=== PATIENT | female | born 1950 | race Caucasian/White ===

== ENCOUNTER → 2021-05-12 | Outpatient (CLI) | payer OTHER ==
[~2021-05-12] MED LIST: CLON.5 PO; HYDACE5; HYOS.125 PO
== END | disposition home or self-care (01) ==
LOC: LAB SHORT 09:46 → LAB 09:46
DX: D36.10 Benign neoplasm of peripheral nerves and autonomic nervous system, unspecified (principal); L91.8 Other hypertrophic disorders of the skin
CPT/HCPCS: 88305

== ENCOUNTER 2022-01-12 08:08 | Emergency (ER) | payer OTHER ==
[~2022-01-12] VITALS: Ht 162.6 cm; Wt 61.2 kg
[2022-01-12 09:09] LABS: BASOPHILS ABSOLUTE AUTO 0.06 K/mm3 (0.00-0.23); BASOPHILS PERCENT AUTO 1 % (0-2); EOSINOPHILS ABSOLUTE AUTO 0.09 K/mm3 (0.00-0.68); EOSINOPHILS PERCENT AUTO 1 % (0-6); Hematocrit 37.5 % (33.0-51.0); Hemoglobin 12.2 g/dL (11.5-16.0); IMMATURE GRAN ABSOLUTE AUTO 0.02 K/mm3 (0.00-0.10); IMMATURE GRAN PERCENT AUTO 0 % (0-1); LYMPHOCYTES PERCENT AUTO 21 % (21-46); MONOCYTES ABSOLUTE AUTO 0.46 K/mm3 (0.16-1.47); MONOCYTES PERCENT AUTO 6 % (4-13); Mean Corpuscular HGB 29.3 pg (26.0-34.0); Mean Corpuscular HGB Conc 32.5 g/dL (31.5-36.5); Mean Corpuscular Volume 90 fL (80-100); Mean Platelet Volume 8.7 fL (9.1-12.4); NEUTROPHILS ABSOLUTE AUTO 5.27 K/mm3 (1.96-9.15); NEUTROPHILS PERCENT AUTO 70 % (41-73); Platelet Count 393 K/mm3 (150-400); RDW Coefficient Variation 12.7 % (11.7-14.2); RDW Standard Deviation 41.9 fL (35.1-46.3); Red Blood Cell Count 4.16 M/mm3 (3.80-5.20)
[2022-01-12 09:27] LABS: Anion Gap 7 mmol/L (6-16); Blood Urea Nitrogen 8 mg/dL (8-24); Bun/Creatinine Ratio 13.1 (12.0-20.0); CO2, Blood 25 mmol/L (21-32); Calcium, Blood 9.4 mg/dL (8.5-10.1); Chloride, Blood 108 mmol/L (98-108); Creatinine, Blood 0.61 mg/dL (0.40-1.00); Glomerular Filtration Rate >60 (60-); Glucose, Blood 120 mg/dL (70-99); Potassium, Blood 3.5 mmol/L (3.5-5.5); Sodium, Blood 140 mmol/L (136-145)
[2022-01-12] MEDS ORDERED: HYDROCODONE-AC1 EA10 PO (10:39)
[2022-01-12] MEDS ORDERED: ONDA4ODT MM (10:39)
[2022-01-12] MEDS ORDERED: HYDCOR2.5C PR (10:39)
[2022-01-12] MEDS ORDERED: DOC250 PO (10:39)
== END 2022-01-12 11:11 | disposition home or self-care (01) ==
LOC: ER 08:08
PROVIDERS: Emergency Medicine
DX: K64.4 Residual hemorrhoidal skin tags (principal); K59.00 Constipation, unspecified; G89.18 Other acute postprocedural pain; I10 Essential (primary) hypertension; Z79.899 Other long term (current) drug therapy
CPT/HCPCS: 36415; 74177; 80048; 85025; 96374; 96375; 99284-25; J1170; J2270; J2405; J3010; Q9967

== ENCOUNTER 2022-03-25 22:52 | Observation (INO) | payer OTHER ==
[~2022-03-25] VITALS: Ht 162.6 cm; Wt 63.0 kg
[~2022-03-25 22:52] MED LIST changes: +DOC250 PO; +HYDCOR2.5C PR; +HYDROCODONE-AC1 EA10 PO; +ONDA4ODT MM
[2022-03-25 23:24] LABS: BASOPHILS ABSOLUTE AUTO 0.05 K/mm3 (0.00-0.23); BASOPHILS PERCENT AUTO 1 % (0-2); EOSINOPHILS ABSOLUTE AUTO 0.15 K/mm3 (0.00-0.68); EOSINOPHILS PERCENT AUTO 2 % (0-6); Hematocrit 33.3 % (33.0-51.0); Hemoglobin 10.7 g/dL (11.5-16.0); IMMATURE GRAN ABSOLUTE AUTO 0.03 K/mm3 (0.00-0.10); IMMATURE GRAN PERCENT AUTO 0 % (0-1); LYMPHOCYTES ABSOLUTE AUTO 2.55 K/mm3 (0.84-5.20); LYMPHOCYTES PERCENT AUTO 34 % (21-46); MONOCYTES ABSOLUTE AUTO 0.55 K/mm3 (0.16-1.47); MONOCYTES PERCENT AUTO 7 % (4-13); Mean Corpuscular HGB Conc 32.1 g/dL (31.5-36.5); Mean Corpuscular Volume 90 fL (80-100); Mean Platelet Volume 9.2 fL (9.1-12.4); NEUTROPHILS ABSOLUTE AUTO 4.27 K/mm3 (1.96-9.15); NEUTROPHILS PERCENT AUTO 56 % (41-73); Platelet Count 250 K/mm3 (150-400); RDW Coefficient Variation 13.4 % (11.7-14.2); RDW Standard Deviation 44.4 fL (35.1-46.3); Red Blood Cell Count 3.69 M/mm3 (3.80-5.20)
[2022-03-25 23:42] LABS: Albumin, Blood 3.2 g/dL (3.4-5.0); Albumin/Globulin Ratio 1.1 (0.8-1.8); Bilirubin, Total 0.3 mg/dL (0.1-1.0); Bun/Creatinine Ratio 15.3 (12.0-20.0); Calcium, Blood 9.3 mg/dL (8.5-10.1); Creatinine, Blood 0.66 mg/dL (0.40-1.00); Potassium, Blood 3.2 mmol/L (3.5-5.5); Total Protein, Blood 6.2 g/dL (6.4-8.2)
[2022-03-25 23:46] LABS: International Normalized Ratio 1.05
[2022-03-26 00:13] LABS: Influenza A, PCR NEGATIVE (NEGATIVE); Influenza B, PCR NEGATIVE (NEGATIVE); Resp Syncytial Virus, PCR NEGATIVE (NEGATIVE); SARS-Cov-2 (COVID-19) PCR, MMC NEGATIVE (NEGATIVE)
[2022-03-26] MEDS ORDERED: ESTRADIOL 0.5 MG TAB VAG (02:46)
[2022-03-26] MEDS ORDERED: MULTIVITAMIN PO (02:49)
--- NOTE | 2022-03-26 03:00 | NUR ---
PT ADMITTED TO ROOM ICU 12 UNDER PCU STATUS - OBSERVATION. PT ARRIVES TO ROOM AT 0213, AND IS ABLE TO PIVOT TRANSFER TO BED FROM [facility] WITHOUT VERTIGO. PT ALERT AND ORIENTED. PLEASANT AND COOPERATIVE WITH CARE AND ASSESSMENT. ANXIOUS IN AFFECT. PT FOLLOWS COMANDS, AND IS A GOOD HISTORIAN. NO S/S BLEEDNG AT THIS TIME. SOMEWHAT HYPERTENSIVE. WILL MONITOR CLOSELY. WILL REVIEW CHART AND PLAN OF CARE FOR THIS PT.
[2022-03-26 03:54] LABS: Source, Urine Clean Catch
[2022-03-26 03:56] LABS: Bilirubin, Urine Neg (Neg); Blood, Urine Neg (Neg); Glucose Qualitative, Urine Neg (Neg); Ketones, Urine Neg (Neg); Leukocyte Esterase, Urine Neg (Neg); Nitrite, Urine Neg (Neg); Protein, Urine Neg (Neg); Specific Gravity, Urine 1.005 (1.003-1.022); Urobilinogen, Urine NORM (Normal)
[2022-03-26 04:01] LABS: Appearance, Urine Clear (Clear); Color, Urine Pale Yellow (P-Yellow)
--- NOTE | 2022-03-26 05:11 | NUR ---
PT HAS NOT HAD ANY EMESIS OR LOOSE BM'S THIS SHIFT. NO S/S BLEEDING. PT'S BLOOD PRESSURES HAVE IMPROVED ONCE HER ANXIOUSNESS SUBSIDED. PT WAS ABLE TO AMBULATE TO TOILET. VOIDS Q.S. SAMPLE SENT TO LAB FOR PROCESSING. ORTHOSTATIC BLOOD PRESSURES DONE, AND CHARTED. SEE VS FLOWSHEET FOR DETAILS. WILL CONTINUE TO MONITOR PT, AND WILL REPORT OFF TO ONCOMING RN.
[2022-03-26 05:30] LABS: BASOPHILS ABSOLUTE AUTO 0.04 K/mm3 (0.00-0.23); BASOPHILS PERCENT AUTO 1 % (0-2); EOSINOPHILS ABSOLUTE AUTO 0.07 K/mm3 (0.00-0.68); EOSINOPHILS PERCENT AUTO 1 % (0-6); Hematocrit 29.4 % (33.0-51.0); Hemoglobin 9.5 g/dL (11.5-16.0); IMMATURE GRAN ABSOLUTE AUTO 0.03 K/mm3 (0.00-0.10); IMMATURE GRAN PERCENT AUTO 0 % (0-1); LYMPHOCYTES ABSOLUTE AUTO 1.81 K/mm3 (0.84-5.20); LYMPHOCYTES PERCENT AUTO 25 % (21-46); MONOCYTES ABSOLUTE AUTO 0.42 K/mm3 (0.16-1.47); MONOCYTES PERCENT AUTO 6 % (4-13); Mean Corpuscular HGB 29.1 pg (26.0-34.0); Mean Corpuscular HGB Conc 32.3 g/dL (31.5-36.5); Mean Corpuscular Volume 90 fL (80-100); Mean Platelet Volume 9.1 fL (9.1-12.4); NEUTROPHILS ABSOLUTE AUTO 4.79 K/mm3 (1.96-9.15); NEUTROPHILS PERCENT AUTO 67 % (41-73); Platelet Count 241 K/mm3 (150-400); RDW Coefficient Variation 13.5 % (11.7-14.2); RDW Standard Deviation 44.9 fL (35.1-46.3); Red Blood Cell Count 3.27 M/mm3 (3.80-5.20); White Blood Cell Count 7.16 K/mm3 (4.00-11.30)
[2022-03-26 06:02] LABS: Bun/Creatinine Ratio 16.9 (12.0-20.0); Calcium, Blood 8.5 mg/dL (8.5-10.1); Creatinine, Blood 0.53 mg/dL (0.40-1.00); Potassium, Blood 3.9 mmol/L (3.5-5.5)
--- NOTE | 2022-03-26 07:19 | NUR ---
ASSUMPTION OF CARE RECEIVED REPORT FROM DANIELLE CASTORENA, ASSUMED CARE OF PATIENT. PATIENT LAYING ON RIGHT SIDE WITH EYES CLOSED, VITALS STABLE. SP02 97% ON RA. NO S/S OF DISTRESS. WILL REVIEW ORDERS AND TREAT PRESCRIBED.
[2022-03-26 11:19] LABS: Hemoglobin 10.1 g/dL (11.5-16.0)
--- NOTE | 2022-03-26 12:26 | NUR ---
REASSESSMENT NO ACUTE CHANGES FROM PREVIOUS ASSESSMENT. CLEAR LIQUID LUNCH TRAY PROVIDED, INDEPENDENT WITH MEALS. STAND BY ASSIST TO TOILET WITH STEADY GAIT. DENIES CURRENT NEEDS. REVIEWED H/H CURRENTLY STABLE.
[2022-03-26 16:05] LABS: Hematocrit 30.1 % (33.0-51.0); Hemoglobin 9.7 g/dL (11.5-16.0)
--- NOTE | 2022-03-26 16:07 | NUR ---
REASSESSMENT NO CHANGES FROM PREVIOUS ASSESSMENT. VITALS STABLE. H/H CURRENTLY PENDING. PATIENT DENIES NEEDS OR DISCOMFORTS. WILL CONTINUE TO MONITOR.
--- NOTE | 2022-03-26 17:57 | NUR ---
SHIFT SUMMARY PATIENT REMAINED A/O, DECLINED DISCOMFORTS. NO BLEEDING NOTED. VITALS STABLE THROUGH DAY. AWAITING DR. LAROSE'S VISIT. TOLERATED CLEAR LIQUID DIET WELL. WILL REPORT TO ONCOMING RN.
--- NOTE | 2022-03-26 20:00 | NUR ---
ASSUMED CARE OF PT AT 1915. REPORT RECEIVED. PT PRESENSTS IN BED. ALERT AND ORIENTED. PLEASANT AND COOPERATIVE WITH CARE AND ASSESSMENT. PT'S DAUGHTER IN ROOM. TEACHING DONE WITH PT AND HER DAUGHTER. ALLOWED FOR QUESTIONS. UPDATE GIVEN ON LABS AND PLAN FOR THIS EVENING. WILL REVIEW CHART AND PLAN OF CARE FOR THIS PT.
--- NOTE | 2022-03-27 01:19 | NUR ---
DR LAROSE COMES IN TO SEE PT. PT AGREES TO HAVING COLONOSCOPY. WILL BEGIN BOWEL PREP AT 0600 THIS MORNING. TEACHING DONE WITH PT ON WHAT TO EXPECT AND PROCEDURE. ANSWERED QUESTIONS FOR PT. NO S/S BLEEDING GI DISTRESS THIS NIGHT. WILL CONTINUE TO MONITOR.
--- NOTE | 2022-03-27 04:30 | NUR ---
PT HAS HAD NO BM'S THIS NIGHT. NO S/S BLEEDING. NO NAUSEA OR VOMITING. WILL START BOWEL PREP AT 0600 THIS MORNING. WILL PREMEDICATE PT WITH ZOFRAN TO PREVENT NAUSEA. THIS HAD BEEN DISCUSSED WITH DR LAROSE WHEN HE WAS IN TO SEE PT. PT HAS BEEN MOVING HERSELF ABOUT IN BED ON HER OWN.
[2022-03-27 04:38] LABS: Hematocrit 29.1 % (33.0-51.0); Hemoglobin 9.5 g/dL (11.5-16.0); Mean Corpuscular HGB 29.5 pg (26.0-34.0); Mean Corpuscular HGB Conc 32.6 g/dL (31.5-36.5); Mean Corpuscular Volume 90 fL (80-100); Platelet Count 249 K/mm3 (150-400); RDW Coefficient Variation 13.7 % (11.7-14.2); RDW Standard Deviation 45.3 fL (35.1-46.3); Red Blood Cell Count 3.22 M/mm3 (3.80-5.20); White Blood Cell Count 5.33 K/mm3 (4.00-11.30)
[2022-03-27 05:05] LABS: Calcium, Blood 8.6 mg/dL (8.5-10.1); Creatinine, Blood 0.56 mg/dL (0.40-1.00); Potassium, Blood 3.4 mmol/L (3.5-5.5)
--- NOTE | 2022-03-27 06:36 | NUR ---
PT HAS FINISHED FIRST HALF OF SUPREP BOWEL PREP. WAS GIVEN 4 MG ZOFRAN 15 MINUTES PRIOR TO PREP. PT UP IN ROOM. VOIDS Q.S. NO S/S BLEEDING. HAS DONE HER OWN ORAL CARE AND AM CARE THIS MORNING. WILL CONTINUE TO MONITOR PT, AND WILL REPORT OFF TO ONCOMING RN.
--- NOTE | 2022-03-27 07:28 | NUR ---
ASSUMPTION OF CARE RECEIVED REPORT FROM DANIELLE CASTORENA. ASSUMED CARE OF PATIENT. PATIENT A/O, DENIED DISCOMFORTS. INDEPENDENTLY TRANSFERRED TO TOILET. CURRENTLY DRINKING BOWEL PREP FOR PLANNED SCOPE TODAY. VITALS STABLE. RECEIVED ORDERS FOR IV POTASSIUM. WILL ADMINISTER PRESCRIBED.
--- NOTE | 2022-03-27 08:17 | NUR ---
PHYSICIAN COMMUNICATION NOTIFIED DR. LAROSE THAT PATIENT COMPLETED SUPREP, CURRENTLY WITH DARK LIQUID STOOL. NPO ORDER RECEIVED, REMOVED WATER AND EDUCATED PATIENT.
--- NOTE | 2022-03-27 11:37 | NUR ---
PATIENT OUT OF ROOM TO PROCEDURE
--- NOTE | 2022-03-27 11:44 | NUR ---
History, Chart, Medications and Allergies reviewed before start of procedure. Patient confirms NPO status and agrees with scheduled surgery. Pre-Op teaching done. Pt verbalizes understanding.
--- NOTE | 2022-03-27 12:07 | NUR ---
03/27/22 1207 Javi Phelps History, Chart, Medications and Allergies reviewed before start of procedure. Patient confirms NPO status and agrees with scheduled surgery. 3-LEAD EKG REVIEWED WITH PHYSICIAN PRIOR TO START OF PROCEDURE. MONITOR INTACT WITH CONTINUOUS PULSE OXIMETRY AND INTERMITTENT BP. PATIENT DETERMINED TO BE ASA APPROPRIATE FOR PROPOFOL SEDATION PRIOR TO START OF PROCEDURE BY DR. LAROSE.
[2022-03-27] MEDS ORDERED: DOCUZEN 8.6-501 EACH PO (13:41)
--- NOTE | 2022-03-27 13:52 | NUR ---
PATIENT ARRIVED BACK TO ROOM FROM PROCEDURE. SPOKE WITH DR. LAROSE WHO GAVE THE VERBAL APPROVAL FOR DISCHARGE. NOTIFIED DR. VILLARREAL, DISCHARGE ORDERS RECEIVED. EDUCATED PATIENT AND NOTIFIED.
--- NOTE | 2022-03-27 14:06 | NUR ---
DISCHARGE PATIENT DISCHARGED TO HOME, WITH ASSITANCE FROM DISCHARGE INSTRUCTIONS GIVEN TO PATIENT. IV REMOVED FROM LEFT AC WITH CATHETER INTACT.
== END 2022-03-27 14:20 | disposition home or self-care (01) ==
LOC: ER 22:52 → ICUW 22:53
PROVIDERS: Emergency Medicine; Internal Medicine; Internal Medicine Gastroenterology; ADMIT Family Medicine
PROC: 0DBL8ZX Excision of Transverse Colon, Via Natural or Artificial Opening Endoscopic, Diagnostic (ICD-10-PCS; principal; 2022-03-27 12:00)
PROC: 0DBN8ZX Excision of Sigmoid Colon, Via Natural or Artificial Opening Endoscopic, Diagnostic (ICD-10-PCS; principal; 2022-03-27 12:00)
DX: D12.3 Benign neoplasm of transverse colon (principal); D12.5 Benign neoplasm of sigmoid colon; K57.31 Diverticulosis of large intestine without perforation or abscess with bleeding; K64.4 Residual hemorrhoidal skin tags; Z88.8 Allergy status to other drugs, medicaments and biological substances; Z88.6 Allergy status to analgesic agent; I10 Essential (primary) hypertension; Z90.49 Acquired absence of other specified parts of digestive tract; K64.8 Other hemorrhoids; Z87.891 Personal history of nicotine dependence; Z87.19 Personal history of other diseases of the digestive system; Z20.822 Contact with and (suspected) exposure to COVID-19; D62 Acute posthemorrhagic anemia; E87.6 Hypokalemia; K59.00 Constipation, unspecified; K44.9 Diaphragmatic hernia without obstruction or gangrene; R00.0 Tachycardia, unspecified
CPT/HCPCS: 0241U; 36415; 80048; 80053; 81003; 82272; 82947; 83605; 84484; 85014; 85018; 85025; 85027; 85610; 93005; 93010; 96374; 99285-25; A9270; G0378; J2405; J2704; J3480; J7030; J7040; J7120

== ENCOUNTER 2023-01-04 08:33 | Day surgery (SDC) | payer OTHER ==
[~2023-01-04] VITALS: Ht 162.6 cm; Wt 66.7 kg
[~2023-01-04 08:33] MED LIST changes: +DOCUZEN 8.6-501 EACH PO; +ESTRADIOL 0.5 MG TAB VAG; +MULTIVITAMIN PO
[2023-01-04] MEDS ORDERED: CATAPRES0.1 MG PO (08:49)
[2023-01-04] MEDS ORDERED: FAMO20 PO (08:50)
== END 2023-01-04 11:11 | disposition home or self-care (01) ==
LOC: ORSCSDS 08:33
PROVIDERS: Student in an Organized Health Care Education/Training Program
PROC: 0DB58ZX Excision of Esophagus, Via Natural or Artificial Opening Endoscopic, Diagnostic (ICD-10-PCS; principal; 2023-01-04 09:45)
PROC: 0DB68ZX Excision of Stomach, Via Natural or Artificial Opening Endoscopic, Diagnostic (ICD-10-PCS; principal; 2023-01-04 09:45)
DX: K21.00 Gastro-esophageal reflux disease with esophagitis, without bleeding (principal); K22.70 Barrett's esophagus without dysplasia; K29.70 Gastritis, unspecified, without bleeding; K44.9 Diaphragmatic hernia without obstruction or gangrene; Z79.899 Other long term (current) drug therapy; I10 Essential (primary) hypertension; Z87.891 Personal history of nicotine dependence
CPT/HCPCS: 88305; 88342; J2405; J2704; J7120

== ENCOUNTER 2023-03-16 10:43 | Inpatient (IN) | payer OTHER ==
[~2023-03-16] VITALS: Ht 162.6 cm; Wt 67.4 kg
[~2023-03-16 10:43] MED LIST changes: +CATAPRES0.1 MG PO; +FAMO20 PO
[2023-03-16 11:25] LABS: BASOPHILS ABSOLUTE AUTO 0.06 K/mm3 (0.00-0.23); BASOPHILS PERCENT AUTO 1 % (0-2); EOSINOPHILS ABSOLUTE AUTO 0.11 K/mm3 (0.00-0.68); EOSINOPHILS PERCENT AUTO 1 % (0-6); Hematocrit 26.6 % (33.0-51.0); Hemoglobin 8.5 g/dL (11.5-16.0); IMMATURE GRAN ABSOLUTE AUTO 0.06 K/mm3 (0.00-0.10); IMMATURE GRAN PERCENT AUTO 1 % (0-1); LYMPHOCYTES ABSOLUTE AUTO 2.58 K/mm3 (0.84-5.20); LYMPHOCYTES PERCENT AUTO 31 % (21-46); MONOCYTES ABSOLUTE AUTO 0.47 K/mm3 (0.16-1.47); MONOCYTES PERCENT AUTO 6 % (4-13); Mean Corpuscular HGB 29.4 pg (26.0-34.0); Mean Corpuscular Volume 92 fL (80-100); Mean Platelet Volume 9.3 fL (9.1-12.4); NEUTROPHILS ABSOLUTE AUTO 5.15 K/mm3 (1.96-9.15); NEUTROPHILS PERCENT AUTO 61 % (41-73); Platelet Count 334 K/mm3 (150-400); RDW Coefficient Variation 13.5 % (11.7-14.2); RDW Standard Deviation 45.5 fL (35.1-46.3); Red Blood Cell Count 2.89 M/mm3 (3.80-5.20); White Blood Cell Count 8.43 K/mm3 (4.00-11.30)
[2023-03-16 11:42] LABS: Albumin, Blood 3.2 g/dL (3.4-5.0); Bilirubin, Total 0.2 mg/dL (0.1-1.0); Bun/Creatinine Ratio 16.6 (12.0-20.0); Calcium, Blood 8.8 mg/dL (8.5-10.1); Creatinine, Blood 0.66 mg/dL (0.40-1.00); Globulin, Blood 3.3 g/dL (2.2-4.0); Potassium, Blood 3.6 mmol/L (3.5-5.5); Total Protein, Blood 6.5 g/dL (6.4-8.2)
[2023-03-16] MEDS ORDERED: HYDCHL25 PO (12:34)
[2023-03-16 13:46] LABS: Percent Saturation 8.6 % (15.0-50.0)
--- NOTE | 2023-03-16 15:20 | NUR ---
PT ARRIVED TO THE MEDICAL FLOOR FROM THE ER VIA GURNEY. THE PT WAS ABLE TO TRANSFER TO THE BED WITH MINIMAL ASSISTANCE. PT WAS ORIENTED TO THE ROOM CALL SYSTEM AND LAYOUT. CALL LIGHT IN REACH. WILL CONTINUE TO MONITOR AND ASSESS FOR CHANGES
[2023-03-16 15:28] VITALS: BP 156/78
--- NOTE | 2023-03-16 18:27 | NUR ---
PT ADMITTING ASSESSMENT. I WAS PRESENT DURING THE ASSESSMENT AND INSTRUCTED THE STUDENT RN JEAN MARIE ON THE ADMISSION DOCUMENTATION AND WAS PRESANT AND AGREEABLE WITH THE ASSESSMENTS
--- NOTE | 2023-03-16 18:27 | NUR ---
ROGELIO (GOES BY RAGHU) ARRIVED ON THIS UNIT AROUND 1515 FROM ED WITH CHIEF COMPLAINTS OF EXPLOSIVE BLOODY DIARRHEA. SHE HAD NO BMS HERE OR IN THE ED PRIOR. PATIENT IS PLEASANT AND COOPERATIVE, AMBULATES WELL AND IS A/O X4. PT IS ON CLEAR LIQUID DIET, AND IS AWAITING A GI CONSULT WITH DR. NOYOLA. CT SCANS REVEAL DIVERTICULITIS
--- NOTE | 2023-03-16 18:29 | NUR ---
PT IS A/OX4. PLEASANT AND COOPERATIVE. THE PT IS UP WITH MINIMAL ASSIST. THE PT DENIED ANY PAIN, N/V, OR SOB THE PT APPEARS TO BE BREATHING EASILY ON RA AT THIS TIME. DR. NOYOLA WAS CALLED FOR CONSULT. THE PT WAS GIVEN CLEAR LIQUIDS. AND IS TOLERATING THAT WELL. CALL LIGHT IN REACH. WIULL CONTINUE TO MONITOR AND ASSESS FOR CHANGES
[2023-03-16 20:00] VITALS: BP 170/74
[2023-03-16 20:27] LABS: Hematocrit 23.1 % (33.0-51.0); Hemoglobin 7.4 g/dL (11.5-16.0)
[2023-03-17] VITALS (24 sets, daily range): BP systolic 94–158; BP diastolic 49–74
[2023-03-17 04:59] LABS: BASOPHILS ABSOLUTE AUTO 0.05 K/mm3 (0.00-0.23); BASOPHILS PERCENT AUTO 1 % (0-2); EOSINOPHILS ABSOLUTE AUTO 0.16 K/mm3 (0.00-0.68); EOSINOPHILS PERCENT AUTO 3 % (0-6); Hematocrit 19.9 % (33.0-51.0); Hemoglobin 6.5 g/dL (11.5-16.0); IMMATURE GRAN ABSOLUTE AUTO 0.04 K/mm3 (0.00-0.10); IMMATURE GRAN PERCENT AUTO 1 % (0-1); LYMPHOCYTES PERCENT AUTO 30 % (21-46); MONOCYTES PERCENT AUTO 7 % (4-13); Mean Corpuscular HGB Conc 32.7 g/dL (31.5-36.5); Mean Corpuscular Volume 92 fL (80-100); Mean Platelet Volume 9.1 fL (9.1-12.4); NEUTROPHILS ABSOLUTE AUTO 3.39 K/mm3 (1.96-9.15); NEUTROPHILS PERCENT AUTO 59 % (41-73); Platelet Count 239 K/mm3 (150-400); RDW Coefficient Variation 13.3 % (11.7-14.2); RDW Standard Deviation 43.8 fL (35.1-46.3); Red Blood Cell Count 2.17 M/mm3 (3.80-5.20); White Blood Cell Count 5.74 K/mm3 (4.00-11.30)
[2023-03-17 05:57] LABS: Bun/Creatinine Ratio 13.1 (12.0-20.0); Calcium, Blood 8.3 mg/dL (8.5-10.1); Creatinine, Blood 0.61 mg/dL (0.40-1.00); Potassium, Blood 3.9 mmol/L (3.5-5.5)
--- NOTE | 2023-03-17 07:40 | NUR ---
AO, INDEPENDENT, CONTINENT, TOLERATING CARES. CL DIET AT MIDNIGHT, WATER ONLY AT 0600, NPO AT NOON TODAY. BOWEL PREP STARTED AFTER 0600. HGB DROPPED TO 6.5 AT MORNING LAB DRAW. COLONOSCOPY PENDING THIS AFTERNOON.
--- NOTE | 2023-03-17 15:39 | NUR ---
03/17/23 1539 Elena Barnes History, Chart, Medications and Allergies reviewed before start of procedure. 3-LEAD EKG REVIEWED WITH PHYSICIAN PRIOR TO START OF PROCEDURE. MONITOR INTACT WITH CONTINUOUS PULSE OXIMETRY, CONTINUOUS END TITAL CO2, AND INTERMITTENT BLOOD PRESSURE. O2 VIA N/C INTACT THROUGHOUT SEDATION/PROCEDURE. PATIENT DETERMINED TO BE ASA APPROPRIATE FOR PROPOFOL SEDATION PRIOR TO START OF PROCEDURE BY . MALLAMPATI CLASS 1 AIRWAY: COMPLETE VISULATIZATION OF THE SOFT PALATE.
--- NOTE | 2023-03-17 17:11 | NUR ---
SHIFT SUMMARY PATIENT WITH NAUSEA THIS AM, RELEIVED WITH ZOFRAN. GI PREP DONE. 1 UNIT OF RBC TRANSFUSED THIS AM. PATIENT TOLERATED WELL. COLONOSCOPY ATTEMPT TODAY, HOWEVER PATIENT STILL WITH SOME STOOL IN COLON, WILL NEED ADDITIONAL GI PREP TODAY. PATIENT DENIES PAIN TODAY BUT DOES GET SHORT OF BREATH WITH WALKING TO BATHROOM. WILL CONTINUE TO MONITOR.
--- NOTE | 2023-03-17 18:03 | NUR ---
THIS QUICKBOOKS BOOKKEEPER HAS REVIEWED AND AGREES WITH ALL ASSESSMENTS AND NOTES BY RAFFAELE NOEMI.
[2023-03-18] VITALS (31 sets, daily range): BP systolic 111–177; BP diastolic 48–76
[2023-03-18 05:25] LABS: BASOPHILS ABSOLUTE AUTO 0.06 K/mm3 (0.00-0.23); BASOPHILS PERCENT AUTO 1 % (0-2); EOSINOPHILS ABSOLUTE AUTO 0.17 K/mm3 (0.00-0.68); EOSINOPHILS PERCENT AUTO 3 % (0-6); Hematocrit 25.6 % (33.0-51.0); Hemoglobin 8.3 g/dL (11.5-16.0); IMMATURE GRAN ABSOLUTE AUTO 0.04 K/mm3 (0.00-0.10); IMMATURE GRAN PERCENT AUTO 1 % (0-1); LYMPHOCYTES ABSOLUTE AUTO 1.71 K/mm3 (0.84-5.20); LYMPHOCYTES PERCENT AUTO 28 % (21-46); MONOCYTES ABSOLUTE AUTO 0.52 K/mm3 (0.16-1.47); MONOCYTES PERCENT AUTO 9 % (4-13); Mean Corpuscular HGB 29.4 pg (26.0-34.0); Mean Corpuscular HGB Conc 32.4 g/dL (31.5-36.5); Mean Corpuscular Volume 91 fL (80-100); NEUTROPHILS ABSOLUTE AUTO 3.63 K/mm3 (1.96-9.15); NEUTROPHILS PERCENT AUTO 59 % (41-73); Platelet Count 287 K/mm3 (150-400); RDW Coefficient Variation 13.9 % (11.7-14.2); RDW Standard Deviation 46.1 fL (35.1-46.3); Red Blood Cell Count 2.82 M/mm3 (3.80-5.20); White Blood Cell Count 6.13 K/mm3 (4.00-11.30)
[2023-03-18 06:16] LABS: Bun/Creatinine Ratio 9.3 (12.0-20.0); Calcium, Blood 7.8 mg/dL (8.5-10.1); Creatinine, Blood 0.65 mg/dL (0.40-1.00); Potassium, Blood 3.5 mmol/L (3.5-5.5)
--- NOTE | 2023-03-18 07:48 | NUR ---
TOLERATING BOWEL PREP, BMs ARE CLEAR WITH SMALL AMOUNT OF SEDIMENT. PT STATES SHE HAS NOT SEEN BLOOD IN BOWEL MOVEMENTS LIKE BEFORE. PENDING COLONOSCOPY TODAY.
--- NOTE | 2023-03-18 14:09 | NUR ---
PHONE UPDATE DR NOYOLA BLUEPRINT READER SILVIA NOTIFIED PATIENT IS FINISHED WITH DARIO AND READY FOR PROCEDURE AT 1409 ON 03/18/23
--- NOTE | 2023-03-18 18:17 | NUR ---
SHIFT SUMMARY PATIENT TOLERATED BOWEL PREP WITH MINITMAL NAUSEA RELIEVED BY ZOFRAN, BEEN NPO SINCE 1PM, WAITING FOR COLONOSCOPY THIS EVENING. DENIES PAIN THROUGHOUT DAY.
--- NOTE | 2023-03-18 18:28 | NUR ---
THIS NIGHT CLEANER HAS REVIEWED AND AGREES WITH ALL NOTES AND ASSESSMENTS BY RAFFAELE NOEMI.
--- NOTE | 2023-03-18 20:29 | NUR ---
PT TRANSPORTED TO [facility]. AGREES WITH PLANNED PROCEDURE. COMPLETED BOWEL PREP AND STATE LAST BM CLEAR YELLOW. REDNESS AND SWELLING NOTED AT IV SITE ON RIGHT UPPER ARM. TEMP 100.7. DR. LAROSE INFORMED. REPORT TO BE GIVEN TO MED FLOOR NURSE FOR THEM TO INFORM HOSPITALIST.
--- NOTE | 2023-03-18 20:45 | NUR ---
03/18/232044 Leonid Phelps HISTORY, CHART, MEDICATIONS AND ALLERGIES REVIEWED BEFORE START OF PROCEDURE. PATIENT CONFIRMS NPO STATUS AND AGREES WITH SCHEDULED PROCEDURE. 3-LEAD EKG REVIEWED WITH PHYSICIAN PRIOR TO START OF PROCEDURE. MONITOR INTACT WITH CONTINUOUS PULSE OXIMETRY,CAPNOGRAPHY, 3-LEAD EKG, INTERMITTENT BP. SUPPLEMENTAL O2 TO BE TITRATED THROUGHOUT PROCEDURE TO MAINTAIN O2 SATURATION ABOVE 90%. PATIENT DETERMINED TO BE ASA APPROPRIATE FOR PROPOFOL SEDATION PRIOR TO START OF PROCEDURE BY DR. LAROSE.
[2023-03-19 04:28] VITALS: BP 107/49
[2023-03-19 05:11] LABS: Hematocrit 25.4 % (33.0-51.0); Hemoglobin 8.3 g/dL (11.5-16.0)
--- NOTE | 2023-03-19 06:11 | NUR ---
PER REPORT FOLLOWING COLONOSCOPY LAST NIGHT, PT EXPECTED TO DC HOME TODAY. HGB STABLE AT 8.3 LAST TWO MORNINGS. PT AO, TOLERATING SNACKS, VSS WITH MILD HTN, UP AD JANIS, PLEASANT.
[2023-03-19 07:19] VITALS: BP 129/62
[2023-03-19] MEDS ORDERED: [UNRECOGNIZED DRUG - OTHER] IV (10:38)
--- NOTE | 2023-03-19 12:16 | NUR ---
Patient doing well this shift, no acute changes to patient status. Plan is to DC home after Ferritin IV administration this am. Patient will f/u with JESSIKA for 2x doses of IV Iron. JESSIKA appointment scheduled for tomorrow. Vitals stable. Pt left at 1130.
== END 2023-03-19 11:44 | disposition home or self-care (01) | DRG 378 ==
LOC: ER 10:43 → MEDS 10:44 → ENPENDDIS 03-19 09:16 → MEDS 03-19 11:44
PROVIDERS: Internal Medicine Gastroenterology; Student in an Organized Health Care Education/Training Program; ADMIT Family Medicine
PROC: 0DJD8ZZ Inspection of Lower Intestinal Tract, Via Natural or Artificial Opening Endoscopic (ICD-10-PCS; 2023-03-17)
PROC: 30233N1 Transfusion of Nonautologous Red Blood Cells into Peripheral Vein, Percutaneous Approach (ICD-10-PCS; principal; 2023-03-17 15:00)
PROC: 0DBL8ZZ Excision of Transverse Colon, Via Natural or Artificial Opening Endoscopic (ICD-10-PCS; 2023-03-18)
DX: K57.31 Diverticulosis of large intestine without perforation or abscess with bleeding (principal); D62 Acute posthemorrhagic anemia; K64.4 Residual hemorrhoidal skin tags; K22.70 Barrett's esophagus without dysplasia; K63.5 Polyp of colon; D50.9 Iron deficiency anemia, unspecified; K64.8 Other hemorrhoids; I10 Essential (primary) hypertension; K44.9 Diaphragmatic hernia without obstruction or gangrene; Z90.89 Acquired absence of other organs; Z90.710 Acquired absence of both cervix and uterus; Z98.890 Other specified postprocedural states; Z90.722 Acquired absence of ovaries, bilateral; Z98.891 History of uterine scar from previous surgery; Z87.42 Personal history of other diseases of the female genital tract; Z88.8 Allergy status to other drugs, medicaments and biological substances; Z79.899 Other long term (current) drug therapy
CPT/HCPCS: 36415; 74177; 80048; 80053; 82272; 82607; 82728; 82746; 83540; 83550; 85014; 85018; 85025; 86850; 86900; 86901; 86923; 96365-59; 96375; 99285-25; A9270; J0696; J2405; J2704; J2916; J7030; J7040; J7120; P9016; Q9967

== ENCOUNTER 2023-03-21 10:03 | Day surgery (SDC) | payer OTHER ==
[~2023-03-21 10:03] MED LIST changes: +HYDCHL25 PO; +[UNRECOGNIZED DRUG - OTHER] IV
[2023-03-21 15:24] VITALS: BP 175/57
== END 2023-03-21 16:35 | disposition home or self-care (01) ==
LOC: ATC 10:03
DX: D50.9 Iron deficiency anemia, unspecified (principal); I10 Essential (primary) hypertension; K62.5 Hemorrhage of anus and rectum
CPT/HCPCS: 96365; J2916

== ENCOUNTER 2023-03-22 01:38 | Day surgery (SDC) | payer OTHER ==
[2023-03-22 15:42] VITALS: BP 156/54
== END 2023-03-22 16:45 | disposition home or self-care (01) ==
LOC: ATC 01:38
DX: D50.9 Iron deficiency anemia, unspecified (principal)
CPT/HCPCS: 96365; J2916

== ENCOUNTER → 2023-06-02 | Outpatient (CLI) | payer OTHER | END | disposition home or self-care (01) | LOC: LAB SHORT 08:01 → PLD 08:01 | DX: D48.5 Neoplasm of uncertain behavior of skin (principal) | CPT/HCPCS: 88305 ==

== ENCOUNTER 2023-10-21 14:24 | Emergency (ER) | payer OTHER ==
[~2023-10-21] VITALS: Ht 162.6 cm; Wt 68.0 kg
[2023-10-21 14:56] LABS: BASOPHILS ABSOLUTE AUTO 0.04 K/mm3 (0.00-0.23); BASOPHILS PERCENT AUTO 0 % (0-2); EOSINOPHILS ABSOLUTE AUTO 0.02 K/mm3 (0.00-0.68); EOSINOPHILS PERCENT AUTO 0 % (0-6); Hematocrit 39.6 % (33.0-51.0); Hemoglobin 13.5 g/dL (11.5-16.0); IMMATURE GRAN ABSOLUTE AUTO 0.05 K/mm3 (0.00-0.10); IMMATURE GRAN PERCENT AUTO 0 % (0-1); LYMPHOCYTES ABSOLUTE AUTO 0.46 K/mm3 (0.84-5.20); LYMPHOCYTES PERCENT AUTO 4 % (21-46); MONOCYTES PERCENT AUTO 4 % (4-13); Mean Corpuscular HGB 30.1 pg (26.0-34.0); Mean Corpuscular HGB Conc 34.1 g/dL (31.5-36.5); Mean Corpuscular Volume 88 fL (80-100); Mean Platelet Volume 8.7 fL (9.1-12.4); NEUTROPHILS ABSOLUTE AUTO 11.89 K/mm3 (1.96-9.15); NEUTROPHILS PERCENT AUTO 92 % (41-73); Platelet Count 267 K/mm3 (150-400); RDW Coefficient Variation 12.5 % (11.7-14.2); RDW Standard Deviation 40.7 fL (35.1-46.3); Red Blood Cell Count 4.49 M/mm3 (3.80-5.20); White Blood Cell Count 12.96 K/mm3 (4.00-11.30)
[2023-10-21 15:26] LABS: Albumin, Blood 3.6 g/dL (3.4-5.0); Albumin/Globulin Ratio 0.9 (0.8-1.8); Bilirubin, Total 0.6 mg/dL (0.1-1.0); Bun/Creatinine Ratio 17.4 (12.0-20.0); Calcium, Blood 9.5 mg/dL (8.5-10.1); Creatinine, Blood 0.69 mg/dL (0.40-1.00); Potassium, Blood 3.4 mmol/L (3.5-5.5); Total Protein, Blood 7.6 g/dL (6.4-8.2)
[2023-10-21 15:39] LABS: Influenza A, PCR NEGATIVE (NEGATIVE); Influenza B, PCR NEGATIVE (NEGATIVE); Resp Syncytial Virus, PCR NEGATIVE (NEGATIVE); SARS-Cov-2 (COVID-19) PCR, MMC NEGATIVE (NEGATIVE)
[2023-10-21 15:52] LABS: Source, Urine Clean Catch
[2023-10-21 16:20] LABS: Appearance, Urine Clear (Clear); Bilirubin, Urine Neg (Neg); Blood, Urine Neg (Neg); Color, Urine Yellow (P-Yellow); Glucose Qualitative, Urine Neg (Neg); Ketones, Urine Neg (Neg); Leukocyte Esterase, Urine Neg (Neg); Nitrite, Urine Neg (Neg); Protein, Urine Neg (Neg); Specific Gravity, Urine 1.015 (1.003-1.022); Urobilinogen, Urine NORM (Normal)
[2023-10-21 18:30] VITALS: BP 120/47
== END 2023-10-21 18:54 | disposition home or self-care (01) ==
LOC: ER 14:24
PROVIDERS: Physician Assistant
DX: R50.9 Fever, unspecified (principal); I10 Essential (primary) hypertension; Z79.899 Other long term (current) drug therapy; Z88.8 Allergy status to other drugs, medicaments and biological substances; Z11.52 Encounter for screening for COVID-19
CPT/HCPCS: 0241U; 71046; 80053; 81003; 83605; 83690; 84484; 85025; 93005; 93010; 96374; 99284-25; A9270; J2405

== ENCOUNTER 2023-12-05 01:03 | Observation (INO) | payer OTHER ==
[2023-12-05] VITALS (17 sets, daily range): BP systolic 117–201; BP diastolic 60–171
[~2023-12-05] VITALS: Ht 162.6 cm; Wt 63.5 kg
--- NOTE | 2023-12-05 08:42 | NUR ---
called dr. salamanca is consult. notified that I should call back immediatly if patient begins feeling nauseous or "uncomfortable". when updating patient on plan she notified me that she is becoming increasingly nauseous and painful with "burning" from her reflux. call placed back to dr. salamanca at this time. pt sitting up in bed with call light in reach. zofran being given per emar at this time.
--- NOTE | 2023-12-05 09:56 | NUR ---
Into [facility] via [facility] History, Chart, Medications and Allergies reviewed before start of procedure.Lungs clear T/O to Auscultation.No noted sob-sats>90% on ra. Patient confirms NPO status and agrees with scheduled surgery.Pt reports nausea.
--- NOTE | 2023-12-05 10:30 | NUR ---
12/05/23 1030 Aurelia Guillen HISTORY, CHART, MEDICATIONS AND ALLERGIES REVIEWED BEFORE START OF PROCEDURE. PATIENT CONFIRMS NPO STATUS AND AGREES WITH SCHEDULED PROCEDURE. 3-LEAD EKG REVIEWED WITH PHYSICIAN PRIOR TO START OF PROCEDURE. MONITOR INTACT WITH CONTINUOUS PULSE OXIMETRY,CAPNOGRAPHY, 3-LEAD EKG, INTERMITTENT BP. SUPPLEMENTAL O2 TO BE TITRATED THROUGHOUT PROCEDURE TO MAINTAIN O2 SATURATION ABOVE 90%. PATIENT DETERMINED TO BE ASA APPROPRIATE FOR PROPOFOL SEDATION PRIOR TO START OF PROCEDURE BY .
--- NOTE | 2023-12-05 13:50 | NUR ---
DISCHARGE PT EDUCATED ON SOFT DIET AND BITE SIZE DIET. PT AMBULATES WELL AND TOLERATES DIET WELL, NO NAUSEA OR DIFFICULTY SWALLOWING NOTED. ESCORTED OUT WITH WHEELCHAIR. ALL INSTRUCTIONS GONE OVER WITH PATIENT. NO FURTHER NEEDS.
== END 2023-12-05 13:51 | disposition home or self-care (01) ==
LOC: ER 01:03 → ERHOLD 01:04 → SURS 01:04
PROVIDERS: Internal Medicine Gastroenterology; ADMIT Internal Medicine
PROC: 0DC58ZZ Extirpation of Matter from Esophagus, Via Natural or Artificial Opening Endoscopic (ICD-10-PCS; principal; 2023-12-05 18:15)
DX: T18.128A Food in esophagus causing other injury, initial encounter (principal); K44.9 Diaphragmatic hernia without obstruction or gangrene; I10 Essential (primary) hypertension; K22.2 Esophageal obstruction; K26.9 Duodenal ulcer, unspecified as acute or chronic, without hemorrhage or perforation
CPT/HCPCS: 83880; 96374; 96375; 96376; 99285-25; G0378; J1610; J1885; J2001; J2405; J2704; J7120